=== PATIENT | male | born 1940 | race Caucasian/White ===

== ENCOUNTER 2022-02-24 13:44 | Outpatient (CLI) | payer MEDICARE ==
[~2022-02-24 13:44] MED LIST: ALBU8.5H17 INH; ASPI-611 PO; ATOR80TA PO; CHOL400T14 PO; FURO40TA4 PO; IBUP-24 PO; MULT-1085 PO; OMEG-86 PO; OXYGEN; POTA-82 PO
== END 2022-02-24 23:59 | disposition home or self-care (01) ==
LOC: RAD 13:44
PROVIDERS: ATTEND Physician Assistant
DX: C34.91 Malignant neoplasm of unspecified part of right bronchus or lung (principal); R13.14 Dysphagia, pharyngoesophageal phase; R13.11 Dysphagia, oral phase; K21.9 Gastro-esophageal reflux disease without esophagitis
CPT/HCPCS: 74230